=== PATIENT | male | born 1980 | race Two or more races ===

== ENCOUNTER 2023-03-20 16:38 | Inpatient (IN) | payer MEDICAID ==
[~2023-03-20] VITALS: Ht 177.8 cm; Wt 47.2 kg
[2023-03-20] MEDS ORDERED: PANT40SU2 GT (17:53)
[2023-03-20] MEDS ORDERED: ARGI1POW13 GT (17:53)
[2023-03-20] MEDS ORDERED: BISA10SU11 RC (17:53)
[2023-03-20] MEDS ORDERED: MULT9LIQ GT (17:53)
[2023-03-20] MEDS ORDERED: ASCO500L2 GT (17:53)
[2023-03-20] MEDS ORDERED: CRAN425C6 GT (17:53)
[2023-03-20] MEDS ORDERED: ENOX40DI9 SQ (17:53)
[2023-03-20] MEDS ORDERED: LACT100027 GT (17:53)
[2023-03-20] MEDS ORDERED: ACET-2070 GT (17:53)
[2023-03-20] MEDS ORDERED: ACET-2605 GT (17:53)
[2023-03-20] MEDS ORDERED: ZINC50TA65 GT (17:53)
[2023-03-20] MEDS ORDERED: BUSP15TA3 GT (17:53)
[2023-03-20] MEDS ORDERED: IBUP-1955 GT (17:53)
[2023-03-20] MEDS ORDERED: ALBU8.5H8 IH (17:53)
[2023-03-20] MEDS ORDERED: METO25TA6 GT (17:53)
[2023-03-20] MEDS ORDERED: DOCU100T2 GT (17:53)
[2023-03-20] MEDS ORDERED: ACET-868 GT (17:53)
[2023-03-20] MEDS ORDERED: LEVO750T46 GT (17:53)
[2023-03-20] MEDS ORDERED: CLON0.1T PO (17:53)
[2023-03-20] MEDS ORDERED: GABA250S GT (17:53)
[2023-03-20] MEDS ORDERED: FLUC200T GT (17:53)
[2023-03-20] MEDS ORDERED: FERR220E2 GT (17:53)
[2023-03-20] MEDS ORDERED: CHLO473M5 MM (17:53)
[2023-03-20] MEDS ORDERED: MAGN400O6 GT (17:53)
[2023-03-20 19:58] LABS: BASOPHILS % (AUTO) 0.4 % (0.0-2.0); EOSINOPHILS # (AUTO) 0.2 K/uL (0.0-0.7); EOSINOPHILS % (AUTO) 2.2 % (0.0-6.0); HEMATOCRIT 37 % (39-51); HEMOGLOBIN 11.3 g/dL (13.5-17.5); LYMPHOCYTES # (AUTO) 1.4 K/uL (0.8-4.8); LYMPHOCYTES % (AUTO) 13.6 % (20.0-44.0); MEAN CORPUSCULAR HEMOGLOBIN 24 PG (26.0-33.0); MEAN CORPUSCULAR HGB CONC 31 g/dl (31.0-36.0); MEAN CORPUSCULAR VOLUME 78 fL (80-96); MONOCYTES # (AUTO) 0.5 K/uL (0.1-1.30); MONOCYTES % (AUTO) 4.9 % (2.0-12.0); NEUTROPHILS # (AUTO) 8.1 K/uL (1.8-8.9); NEUTROPHILS % (AUTO) 78.9 % (43.0-81.0); PLATELET COUNT (AUTO) 543 K/uL (150-450); RED BLOOD CELL COUNT(AUTO) 4.66 MIL/uL (4.5-6.0); RED CELL DISTRIBUTION WIDTH 16.7 % (11.5-15.0); WHITE BLOOD COUNT (AUTO) 10.2 K/uL (4.3-11.0)
[2023-03-20 20:10] LABS: CALCIUM, SERUM 9.5 mg/dL (8.5-10.1); CREATININE 0.4 mg/dL (0.6-1.3); POTASSIUM 4.5 mmol/L (3.5-5.1)
[2023-03-20 20:50] VITALS: BP 114/76; TEMP 97.9; O2SAT 100
[2023-03-20] MEDS ORDERED: BISACODYL SUPP (10 MG) 10 MG/SUPP.RECT SUPP.RECT RC PRN (23:00)
[2023-03-20] MEDS ORDERED: ONDANSETRON HCL/PF 4 MG/2 ML VIAL IVP PRN (23:00)
[2023-03-20] MEDS ORDERED: ACETAMINOPHEN 325 MG TABLET PO PRN (23:00)
[2023-03-20] MEDS ORDERED: MAGNESIUM HYDROXIDE 30 ML UDC PO PRN (23:00)
[2023-03-20] MEDS ORDERED: MAG HYDROX/AL HYDROX/SIMETH 30 ML UDC PO PRN (23:00)
[2023-03-20] MEDS ORDERED: CLONIDINE HCL 0.1 MG TABLET PO PRN (23:00)
[2023-03-20] MEDS ORDERED: Z GUARD REMEDY 4 OZ OINT TP PRN (23:00)
[2023-03-20] MEDS ORDERED: IBUPROFEN 600 MG TABLET GT PRN (23:00)
[2023-03-20] MEDS ORDERED: ZOLPIDEM TARTRATE 5 MG TABLET PO PRN (23:00)
[2023-03-20] MEDS ORDERED: MAGNESIUM HYDROXIDE 30 ML UDC GT PRN (23:00)
[2023-03-20] MEDS: ENOXAPARIN SODIUM 40 MG/0.4 ML DISP.SYRIN SQ SCH (23:12)
[2023-03-20] MEDS ORDERED: VANCOMYCIN 1 GM /D5W 250 ML PB IV ONE (23:23)
[2023-03-20] MEDS ORDERED: VANCOMYCIN 1 GM in IV D5W 250ml IV ONE (23:30)
[2023-03-21] VITALS: BP 107/72; TEMP 99.1; O2SAT 98
[2023-03-21 04:00] VITALS: BP 105/70; TEMP 98.3; O2SAT 100
[2023-03-21 06:56] LABS: BASOPHILS # (AUTO) 0.1 K/uL (0.0-0.2); BASOPHILS % (AUTO) 0.8 % (0.0-2.0); EOSINOPHILS # (AUTO) 0.3 K/uL (0.0-0.7); EOSINOPHILS % (AUTO) 2.6 % (0.0-6.0); HEMATOCRIT 32 % (39-51); HEMOGLOBIN 10.3 g/dL (13.5-17.5); LYMPHOCYTES # (AUTO) 1.5 K/uL (0.8-4.8); MEAN CORPUSCULAR HEMOGLOBIN 25 PG (26.0-33.0); MEAN CORPUSCULAR HGB CONC 32 g/dl (31.0-36.0); MEAN CORPUSCULAR VOLUME 78 fL (80-96); MONOCYTES # (AUTO) 0.7 K/uL (0.1-1.30); MONOCYTES % (AUTO) 6.9 % (2.0-12.0); NEUTROPHILS # (AUTO) 7.7 K/uL (1.8-8.9); NEUTROPHILS % (AUTO) 74.7 % (43.0-81.0); PLATELET COUNT (AUTO) 552 K/uL (150-450); RED CELL DISTRIBUTION WIDTH 16.5 % (11.5-15.0); WHITE BLOOD COUNT (AUTO) 10.3 K/uL (4.3-11.0)
[2023-03-21 07:12] LABS: CALCIUM, SERUM 9.9 mg/dL (8.5-10.1); CREATININE 0.4 mg/dL (0.6-1.3); MAGNESIUM 2.1 mg/dL (1.8-2.4); PHOSPHORUS 4.2 mg/dL (2.5-4.9); POTASSIUM 4.1 mmol/L (3.5-5.1)
[2023-03-21 08:00] VITALS: BP 107/77; TEMP 98.7; O2SAT 99
[2023-03-21] MEDS: DOCUSATE SODIUM LIQ 100 MG/10 ML UDC GT SCH (08:52)
[2023-03-21] MEDS: CHLORHEXIDINE GLUCONATE 15 ML UDC MM SCH ×2 (08:52→21:54)
[2023-03-21] MEDS: MULTIVITAMINS,THERAGRAN 1 UDTAB TABLET GT SCH (08:53)
[2023-03-21] MEDS: METOPROLOL TARTRATE 25 MG TABLET GT SCH ×2 (08:54→21:54)
[2023-03-21] MEDS: busPIRone 5 MG TABLET GT SCH ×3 (08:55→16:56)
[2023-03-21] MEDS: ASCORBIC ACID 500 MG TABLET GT SCH ×2 (08:55→16:56)
[2023-03-21] MEDS ORDERED: PANTOPRAZOLE 40 MG VIAL IV SCH (09:00)
[2023-03-21] MEDS ORDERED: ENOXAPARIN SODIUM 40 MG/0.4 ML DISP.SYRIN SQ SCH (09:00)
[2023-03-21] MEDS: VANCOMYCIN 1 GM in IV D5W 250ml IV SCH ×2 (09:02→16:55)
[2023-03-21] MEDS: GABAPENTIN 300 MG CAPSULE PO SCH ×3 (09:07→16:56)
[2023-03-21 12:00] VITALS: BP 92/65; TEMP 98.3; O2SAT 98
[2023-03-21] MEDS ORDERED: JEVITY 1.2 CAL 1,000 ML BOTTLE GT PRN ×2 (13:00)
[2023-03-21 16:00] VITALS: BP 93/60; TEMP 98.3; O2SAT 99
[2023-03-21] MEDS: ZINC SULFATE 220 MG CAPSULE GT SCH (17:19)
[2023-03-21] MEDS: FERROUS SULFATE UDC 300 MG/5 ML UDC GT SCH (17:19)
[2023-03-21] MEDS ORDERED: CRANBERRY EXT/C/L. SPOROGENES 405 MG/TAB TABLET GT SCH (18:00)
[2023-03-21 20:00] VITALS: BP 120/70; TEMP 98.2; O2SAT 98
[2023-03-21] MEDS: ENOXAPARIN SODIUM 40 MG/0.4 ML DISP.SYRIN SQ SCH (21:56)
[2023-03-22] VITALS: BP 126/72; TEMP 98.6; O2SAT 98
[2023-03-22] MEDS: VANCOMYCIN 1 GM in IV D5W 250ml IV SCH ×2 (01:43→12:21)
[2023-03-22 04:00] VITALS: BP 122/70; TEMP 98; O2SAT 99
[2023-03-22 06:41] LABS: CALCIUM, SERUM 9.3 mg/dL (8.5-10.1); CREATININE 0.4 mg/dL (0.6-1.3); POTASSIUM 3.6 mmol/L (3.5-5.1)
[2023-03-22] MEDS ORDERED: ZOLPIDEM TARTRATE 5 MG TABLET GT PRN (07:00)
[2023-03-22] MEDS ORDERED: CLONIDINE HCL 0.1 MG TABLET GT PRN (07:00)
[2023-03-22] MEDS ORDERED: MAG HYDROX/AL HYDROX/SIMETH 30 ML UDC GT PRN (07:00)
[2023-03-22 08:00] VITALS: BP 105/65; TEMP 98.9; O2SAT 98
[2023-03-22] MEDS: CHLORHEXIDINE GLUCONATE 15 ML UDC MM SCH ×2 (08:52→21:40)
[2023-03-22] MEDS: DOCUSATE SODIUM LIQ 100 MG/10 ML UDC GT SCH (08:52)
[2023-03-22] MEDS: PANTOPRAZOLE 40 MG/PACK PACK GT SCH (08:52)
[2023-03-22] MEDS: ASCORBIC ACID 500 MG TABLET GT SCH ×2 (08:53→17:05)
[2023-03-22] MEDS: GABAPENTIN 300 MG CAPSULE GT SCH ×3 (08:53→17:04)
[2023-03-22] MEDS: METOPROLOL TARTRATE 25 MG TABLET GT SCH ×2 (08:53→21:00)
[2023-03-22] MEDS: busPIRone 5 MG TABLET GT SCH ×3 (08:53→17:04)
[2023-03-22] MEDS: MULTIVITAMINS,THERAGRAN 1 UDTAB TABLET GT SCH (08:54)
[2023-03-22] MEDS: DAKINS QUARTER STRENGTH (0.125%) 480 ML BOTTLE TOP SCH ×2 (10:48→22:00)
[2023-03-22 12:00] VITALS: BP 107/68; TEMP 99; O2SAT 100
[2023-03-22] MEDS: JEVITY 1.2 CAL 1,000 ML BOTTLE GT PRN (12:33)
[2023-03-22 16:00] VITALS: BP 110/80; TEMP 99.2; O2SAT 100
[2023-03-22] MEDS: FERROUS SULFATE UDC 300 MG/5 ML UDC GT SCH (17:04)
[2023-03-22] MEDS: ZINC SULFATE 220 MG CAPSULE GT SCH (17:05)
[2023-03-22 20:00] VITALS: BP 92/61; TEMP 99; O2SAT 100
[2023-03-22] MEDS: ENOXAPARIN SODIUM 40 MG/0.4 ML DISP.SYRIN SQ SCH (21:41)
[2023-03-22] MEDS: THERAHONEY GEL 1.5 OZ TUBE TP SCH (22:00)
[2023-03-22] MEDS ORDERED: SILVER NITRATE APPLICATOR 1 EA BOX TP SCH (22:00)
[2023-03-22] MEDS ORDERED: LIDOCAINE 1%-EPI 1:100,000 50 ML VIAL IJ ONE (22:00)
[2023-03-23] VITALS: BP 90/62; TEMP 99; O2SAT 98
[2023-03-23] MEDS: METOPROLOL TARTRATE 25 MG TABLET GT SCH ×3 (00:20→21:46)
[2023-03-23] MEDS: VANCOMYCIN 1 GM in IV D5W 250ml IV SCH ×2 (01:21→13:18)
[2023-03-23 04:00] VITALS: BP 94/63; TEMP 98.4; O2SAT 100
[2023-03-23] MEDS: JEVITY 1.2 CAL 1,000 ML BOTTLE GT PRN ×2 (06:06→22:05)
[2023-03-23 06:10] LABS: CALCIUM, SERUM 9.1 mg/dL (8.5-10.1); CREATININE 0.6 mg/dL (0.6-1.3)
[2023-03-23 08:00] VITALS: BP 98/60; TEMP 98.5; O2SAT 100
[2023-03-23] MEDS: DAKINS QUARTER STRENGTH (0.125%) 480 ML BOTTLE TOP SCH ×2 (09:00→09:38)
[2023-03-23] MEDS: CHLORHEXIDINE GLUCONATE 15 ML UDC MM SCH ×2 (09:22→21:42)
[2023-03-23] MEDS: PANTOPRAZOLE 40 MG/PACK PACK GT SCH (09:22)
[2023-03-23] MEDS: ASCORBIC ACID 500 MG TABLET GT SCH ×2 (09:22→17:34)
[2023-03-23] MEDS: DOCUSATE SODIUM LIQ 100 MG/10 ML UDC GT SCH (09:22)
[2023-03-23] MEDS: MULTIVITAMINS,THERAGRAN 1 UDTAB TABLET GT SCH (09:23)
[2023-03-23] MEDS: busPIRone 5 MG TABLET GT SCH ×3 (09:23→17:34)
[2023-03-23] MEDS: GABAPENTIN 300 MG CAPSULE GT SCH ×3 (09:23→17:34)
[2023-03-23] MEDS: THERAHONEY GEL 1.5 OZ TUBE TP SCH (09:38)
[2023-03-23 12:00] VITALS: BP 91/54; TEMP 98.6; O2SAT 100
[2023-03-23 16:00] VITALS: BP 90/70; TEMP 98.2; O2SAT 100
[2023-03-23] MEDS: ZINC SULFATE 220 MG CAPSULE GT SCH (17:34)
[2023-03-23] MEDS: FERROUS SULFATE UDC 300 MG/5 ML UDC GT SCH (17:34)
[2023-03-23 20:00] VITALS: BP 94/64; TEMP 98.3; O2SAT 100
[2023-03-23] MEDS: ENOXAPARIN SODIUM 40 MG/0.4 ML DISP.SYRIN SQ SCH (21:43)
[2023-03-24] VITALS: BP 96/65; TEMP 99; O2SAT 100
[2023-03-24] MEDS: VANCOMYCIN 1 GM in IV D5W 250ml IV SCH (00:31)
[2023-03-24 04:00] VITALS: BP 92/65; TEMP 98.1; O2SAT 100
[2023-03-24 05:51] LABS: CALCIUM, SERUM 9.7 mg/dL (8.5-10.1); CREATININE 0.4 mg/dL (0.6-1.3); POTASSIUM 3.9 mmol/L (3.5-5.1)
[2023-03-24 08:00] VITALS: BP 100/66; TEMP 98.9; O2SAT 100
[2023-03-24] MEDS: DAKINS QUARTER STRENGTH (0.125%) 480 ML BOTTLE TOP SCH ×2 (09:00→09:55)
[2023-03-24] MEDS: GABAPENTIN 300 MG CAPSULE GT SCH ×3 (09:43→17:49)
[2023-03-24] MEDS: PANTOPRAZOLE 40 MG/PACK PACK GT SCH (09:43)
[2023-03-24] MEDS: busPIRone 5 MG TABLET GT SCH ×3 (09:43→17:49)
[2023-03-24] MEDS: CHLORHEXIDINE GLUCONATE 15 ML UDC MM SCH ×2 (09:43→21:47)
[2023-03-24] MEDS: MULTIVITAMINS,THERAGRAN 1 UDTAB TABLET GT SCH (09:43)
[2023-03-24] MEDS: ASCORBIC ACID 500 MG TABLET GT SCH ×2 (09:43→17:49)
[2023-03-24] MEDS: DOCUSATE SODIUM LIQ 100 MG/10 ML UDC GT SCH (09:43)
[2023-03-24] MEDS: METOPROLOL TARTRATE 25 MG TABLET GT SCH ×2 (09:44→21:48)
[2023-03-24] MEDS: THERAHONEY GEL 1.5 OZ TUBE TP SCH (09:57)
[2023-03-24 12:00] VITALS: BP 100/49; TEMP 98.8; O2SAT 100
[2023-03-24] MEDS ORDERED: CEFEPIME 1 GM in IV D5W 50 ML IV SCH (12:30)
[2023-03-24] MEDS: CEFEPIME 2 GM in IV D5W 100 ML IV SCH (13:40)
[2023-03-24 16:00] VITALS: BP 102/53; TEMP 98.9; O2SAT 100
[2023-03-24] MEDS: FERROUS SULFATE UDC 300 MG/5 ML UDC GT SCH (17:49)
[2023-03-24] MEDS: ZINC SULFATE 220 MG CAPSULE GT SCH (17:49)
[2023-03-24] MEDS: PROSOURCE / PROSTAT (PYXIS) 30 ML UDC GT SCH (17:56)
[2023-03-24] MEDS: JEVITY 1.2 CAL 1,000 ML BOTTLE GT PRN (18:50)
[2023-03-24 20:00] VITALS: BP 100/64; TEMP 99.1; O2SAT 100
[2023-03-24] MEDS: ENOXAPARIN SODIUM 40 MG/0.4 ML DISP.SYRIN SQ SCH (21:47)
[2023-03-25] VITALS: BP 104/68; TEMP 98.4; O2SAT 99
[2023-03-25] MEDS: CEFEPIME 2 GM in IV D5W 100 ML IV SCH ×2 (01:12→13:12)
[2023-03-25 04:00] VITALS: BP 103/71; TEMP 98.9; O2SAT 100
[2023-03-25 06:25] LABS: CALCIUM, SERUM 9.6 mg/dL (8.5-10.1); CREATININE 0.5 mg/dL (0.6-1.3)
[2023-03-25 08:00] VITALS: BP 97/62; TEMP 98.5; O2SAT 100
[2023-03-25] MEDS: PROSOURCE / PROSTAT (PYXIS) 30 ML UDC GT SCH ×2 (08:47→17:53)
[2023-03-25 08:54] LABS: BASOPHILS # (AUTO) 0.1 K/uL (0.0-0.2); BASOPHILS % (AUTO) 0.6 % (0.0-2.0); EOSINOPHILS # (AUTO) 0.3 K/uL (0.0-0.7); EOSINOPHILS % (AUTO) 2.3 % (0.0-6.0); HEMATOCRIT 30 % (39-51); HEMOGLOBIN 9.5 g/dL (13.5-17.5); LYMPHOCYTES # (AUTO) 0.9 K/uL (0.8-4.8); LYMPHOCYTES % (AUTO) 7.2 % (20.0-44.0); MEAN CORPUSCULAR HEMOGLOBIN 24 PG (26.0-33.0); MEAN CORPUSCULAR HGB CONC 31 g/dl (31.0-36.0); MEAN CORPUSCULAR VOLUME 78 fL (80-96); MONOCYTES # (AUTO) 0.8 K/uL (0.1-1.30); MONOCYTES % (AUTO) 6.7 % (2.0-12.0); NEUTROPHILS # (AUTO) 10.1 K/uL (1.8-8.9); NEUTROPHILS % (AUTO) 83.2 % (43.0-81.0); PLATELET COUNT (AUTO) 420 K/uL (150-450); RED BLOOD CELL COUNT(AUTO) 3.89 MIL/uL (4.5-6.0); RED CELL DISTRIBUTION WIDTH 17.1 % (11.5-15.0); WHITE BLOOD COUNT (AUTO) 12.2 K/uL (4.3-11.0)
[2023-03-25] MEDS: DAKINS QUARTER STRENGTH (0.125%) 480 ML BOTTLE TOP SCH ×2 (09:00→09:16)
[2023-03-25] MEDS: CHLORHEXIDINE GLUCONATE 15 ML UDC MM SCH ×2 (09:14→21:18)
[2023-03-25] MEDS: MULTIVITAMINS,THERAGRAN 1 UDTAB TABLET GT SCH (09:14)
[2023-03-25] MEDS: DOCUSATE SODIUM LIQ 100 MG/10 ML UDC GT SCH (09:14)
[2023-03-25] MEDS: PANTOPRAZOLE 40 MG/PACK PACK GT SCH (09:14)
[2023-03-25] MEDS: ASCORBIC ACID 500 MG TABLET GT SCH ×2 (09:15→17:53)
[2023-03-25] MEDS: METOPROLOL TARTRATE 25 MG TABLET GT SCH ×2 (09:15→21:18)
[2023-03-25] MEDS: GABAPENTIN 300 MG CAPSULE GT SCH ×3 (09:16→17:53)
[2023-03-25] MEDS: busPIRone 5 MG TABLET GT SCH ×3 (09:16→17:53)
[2023-03-25] MEDS: THERAHONEY GEL 1.5 OZ TUBE TP SCH (09:17)
[2023-03-25] MEDS: JEVITY 1.2 CAL 1,000 ML BOTTLE GT PRN (11:35)
[2023-03-25 12:00] VITALS: BP 99/65; TEMP 98.4; O2SAT 100
[2023-03-25 16:00] VITALS: BP 97/61; TEMP 98.8; O2SAT 91
[2023-03-25] MEDS: FERROUS SULFATE UDC 300 MG/5 ML UDC GT SCH (17:52)
[2023-03-25] MEDS: ZINC SULFATE 220 MG CAPSULE GT SCH (17:53)
[2023-03-25 20:00] VITALS: BP 107/72; TEMP 99.1; O2SAT 98
[2023-03-25] MEDS: ACETAMINOPHEN 650 MG/20.3 ML UDC GT PRN (21:22)
[2023-03-25] MEDS: ENOXAPARIN SODIUM 40 MG/0.4 ML DISP.SYRIN SQ SCH (22:07)
[2023-03-26] VITALS: BP 97/68; TEMP 98.6; O2SAT 99
[2023-03-26] MEDS: CEFEPIME 2 GM in IV D5W 100 ML IV SCH ×2 (01:22→13:04)
[2023-03-26 04:00] VITALS: BP 97/65; TEMP 98.5; O2SAT 100
[2023-03-26] MEDS: JEVITY 1.2 CAL 1,000 ML BOTTLE GT PRN ×2 (05:45→18:20)
[2023-03-26 06:57] LABS: CALCIUM, SERUM 9.6 mg/dL (8.5-10.1); CREATININE 0.4 mg/dL (0.6-1.3); POTASSIUM 4.1 mmol/L (3.5-5.1)
[2023-03-26 07:52] LABS: C-REACTIVE PROTEIN 3.7 mg/dL (0.0-0.9)
[2023-03-26 08:00] VITALS: BP 96/69; TEMP 98.9; O2SAT 100
[2023-03-26] MEDS: PROSOURCE / PROSTAT (PYXIS) 30 ML UDC GT SCH ×2 (09:17→17:20)
[2023-03-26] MEDS: CHLORHEXIDINE GLUCONATE 15 ML UDC MM SCH ×2 (09:17→20:49)
[2023-03-26] MEDS: PANTOPRAZOLE 40 MG/PACK PACK GT SCH (09:18)
[2023-03-26] MEDS: DOCUSATE SODIUM LIQ 100 MG/10 ML UDC GT SCH (09:18)
[2023-03-26] MEDS: ASCORBIC ACID 500 MG TABLET GT SCH ×2 (09:18→17:20)
[2023-03-26] MEDS: METOPROLOL TARTRATE 25 MG TABLET GT SCH ×2 (09:18→20:49)
[2023-03-26] MEDS: busPIRone 5 MG TABLET GT SCH ×3 (09:18→17:20)
[2023-03-26] MEDS: GABAPENTIN 300 MG CAPSULE GT SCH ×3 (09:18→17:20)
[2023-03-26] MEDS: MULTIVITAMINS,THERAGRAN 1 UDTAB TABLET GT SCH (09:18)
[2023-03-26] MEDS: DAKINS QUARTER STRENGTH (0.125%) 480 ML BOTTLE TOP SCH ×2 (09:19)
[2023-03-26] MEDS: THERAHONEY GEL 1.5 OZ TUBE TP SCH (09:19)
[2023-03-26 12:00] VITALS: BP 90/62; TEMP 99; O2SAT 100
[2023-03-26] MEDS ORDERED: HYDROCODONE/APAP 5/325MG TABLET GT PRN (12:00)
[2023-03-26 16:00] VITALS: BP 108/77; TEMP 99.1; O2SAT 100
[2023-03-26] MEDS: FERROUS SULFATE UDC 300 MG/5 ML UDC GT SCH (17:20)
[2023-03-26] MEDS: ZINC SULFATE 220 MG CAPSULE GT SCH (17:20)
[2023-03-26] MEDS ORDERED: VANCOMYCIN 1 GM in IV D5W 250ml IV ONE (18:00)
[2023-03-26] MEDS ORDERED: ALBUMIN 25% 25 GM in PREMIX 1 EA IV SCH (19:30)
[2023-03-26 20:00] VITALS: BP 109/76; TEMP 99.1; O2SAT 100
[2023-03-26] MEDS: ACETAMINOPHEN 650 MG/20.3 ML UDC GT PRN (20:49)
[2023-03-26] MEDS: ENOXAPARIN SODIUM 40 MG/0.4 ML DISP.SYRIN SQ SCH (21:22)
[2023-03-27] VITALS: BP 99/69; TEMP 99.7; O2SAT 100
[2023-03-27] MEDS: CEFEPIME 2 GM in IV D5W 100 ML IV SCH ×2 (01:15→12:18)
[2023-03-27 04:00] VITALS: BP 103/73; TEMP 98.9; O2SAT 100
[2023-03-27] MEDS: VANCOMYCIN HCL 0.75 GM in IV D5W 250 ML IV SCH ×2 (05:00→17:21)
[2023-03-27 05:29] LABS: CALCIUM, SERUM 9.5 mg/dL (8.5-10.1); CREATININE 0.4 mg/dL (0.6-1.3); POTASSIUM 3.9 mmol/L (3.5-5.1)
[2023-03-27 08:00] VITALS: BP 102/59; TEMP 98.7; O2SAT 100
[2023-03-27] MEDS: PROSOURCE / PROSTAT (PYXIS) 30 ML UDC GT SCH ×2 (08:22→16:36)
[2023-03-27] MEDS: DOCUSATE SODIUM LIQ 100 MG/10 ML UDC GT SCH (08:43)
[2023-03-27] MEDS: MULTIVITAMINS,THERAGRAN 1 UDTAB TABLET GT SCH (08:44)
[2023-03-27] MEDS: ASCORBIC ACID 500 MG TABLET GT SCH ×2 (08:44→16:46)
[2023-03-27] MEDS: GABAPENTIN 300 MG CAPSULE GT SCH ×3 (08:44→16:46)
[2023-03-27] MEDS: PANTOPRAZOLE 40 MG/PACK PACK GT SCH (08:44)
[2023-03-27] MEDS: METOPROLOL TARTRATE 25 MG TABLET GT SCH ×2 (08:47→21:10)
[2023-03-27] MEDS: busPIRone 5 MG TABLET GT SCH ×3 (08:47→16:46)
[2023-03-27] MEDS: DAKINS QUARTER STRENGTH (0.125%) 480 ML BOTTLE TOP SCH (08:48)
[2023-03-27] MEDS: THERAHONEY GEL 1.5 OZ TUBE TP SCH (08:48)
[2023-03-27] MEDS: CHLORHEXIDINE GLUCONATE 15 ML UDC MM SCH ×2 (08:50→21:03)
[2023-03-27 11:03] LABS: BASOPHILS # (AUTO) 0.1 K/uL (0.0-0.2); EOSINOPHILS # (AUTO) 0.4 K/uL (0.0-0.7); HEMOGLOBIN 9.2 g/dL (13.5-17.5); MONOCYTES % (AUTO) 9.4 % (2.0-12.0)
[2023-03-27 11:05] LABS: BASOPHILS % (AUTO) 0.9 % (0.0-2.0); EOSINOPHILS % (AUTO) 4.9 % (0.0-6.0); HEMATOCRIT 28 % (39-51); LYMPHOCYTES # (AUTO) 1.3 K/uL (0.8-4.8); LYMPHOCYTES % (AUTO) 14.5 % (20.0-44.0); MEAN CORPUSCULAR HEMOGLOBIN 25 PG (26.0-33.0); MEAN CORPUSCULAR HGB CONC 33 g/dl (31.0-36.0); MEAN CORPUSCULAR VOLUME 78 fL (80-96); MONOCYTES # (AUTO) 0.9 K/uL (0.1-1.30); NEUTROPHILS # (AUTO) 6.4 K/uL (1.8-8.9); NEUTROPHILS % (AUTO) 70.3 % (43.0-81.0); PLATELET COUNT (AUTO) 447 K/uL (150-450); RED BLOOD CELL COUNT(AUTO) 3.65 MIL/uL (4.5-6.0); RED CELL DISTRIBUTION WIDTH 16.9 % (11.5-15.0)
[2023-03-27 12:00] VITALS: BP 90/60; TEMP 98; O2SAT 100
[2023-03-27] MEDS: JEVITY 1.2 CAL 1,000 ML BOTTLE GT PRN (12:26)
[2023-03-27 16:00] VITALS: BP 99/50; TEMP 98.8; O2SAT 100
[2023-03-27] MEDS: FERROUS SULFATE UDC 300 MG/5 ML UDC GT SCH (17:04)
[2023-03-27] MEDS: ZINC SULFATE 220 MG CAPSULE GT SCH (17:04)
[2023-03-27 20:00] VITALS: BP 108/65; TEMP 98.1; O2SAT 100
[2023-03-27] MEDS: ENOXAPARIN SODIUM 40 MG/0.4 ML DISP.SYRIN SQ SCH (21:03)
[2023-03-28] VITALS: BP 95/65; TEMP 98; O2SAT 100
[2023-03-28] MEDS: CEFEPIME 2 GM in IV D5W 100 ML IV SCH ×2 (00:07→12:25)
[2023-03-28 04:00] VITALS: BP 100/71; TEMP 98.1; O2SAT 100
[2023-03-28] MEDS: JEVITY 1.2 CAL 1,000 ML BOTTLE GT PRN ×2 (04:31→22:07)
[2023-03-28 06:19] LABS: CALCIUM, SERUM 9.7 mg/dL (8.5-10.1); CREATININE 0.4 mg/dL (0.6-1.3); POTASSIUM 3.7 mmol/L (3.5-5.1)
[2023-03-28] MEDS: VANCOMYCIN HCL 0.75 GM in IV D5W 250 ML IV SCH (06:44)
[2023-03-28 08:00] VITALS: BP 109/70; TEMP 97.9; O2SAT 100
[2023-03-28] MEDS: PROSOURCE / PROSTAT (PYXIS) 30 ML UDC GT SCH ×2 (08:58→17:27)
[2023-03-28] MEDS: ASCORBIC ACID 500 MG TABLET GT SCH ×2 (09:12→17:26)
[2023-03-28] MEDS: GABAPENTIN 300 MG CAPSULE GT SCH ×3 (09:12→17:26)
[2023-03-28] MEDS: PANTOPRAZOLE 40 MG/PACK PACK GT SCH (09:12)
[2023-03-28] MEDS: MULTIVITAMINS,THERAGRAN 1 UDTAB TABLET GT SCH (09:12)
[2023-03-28] MEDS: DOCUSATE SODIUM LIQ 100 MG/10 ML UDC GT SCH (09:12)
[2023-03-28] MEDS: busPIRone 5 MG TABLET GT SCH ×3 (09:13→17:27)
[2023-03-28] MEDS: METOPROLOL TARTRATE 25 MG TABLET GT SCH ×2 (09:13→21:13)
[2023-03-28] MEDS: CHLORHEXIDINE GLUCONATE 15 ML UDC MM SCH ×2 (09:14→21:13)
[2023-03-28] MEDS: DAKINS QUARTER STRENGTH (0.125%) 480 ML BOTTLE TOP SCH (09:14)
[2023-03-28] MEDS: THERAHONEY GEL 1.5 OZ TUBE TP SCH (09:14)
[2023-03-28 12:00] VITALS: BP 95/60; TEMP 98; O2SAT 99
[2023-03-28 16:00] VITALS: BP 107/72; TEMP 98.2; O2SAT 100
[2023-03-28] MEDS: ZINC SULFATE 220 MG CAPSULE GT SCH (17:26)
[2023-03-28] MEDS: FERROUS SULFATE UDC 300 MG/5 ML UDC GT SCH (17:26)
[2023-03-28] MEDS: VANCOMYCIN 1 GM in IV D5W 250 ML IV SCH (17:30)
[2023-03-28 20:00] VITALS: BP 106/70; TEMP 98.5; O2SAT 99
[2023-03-28] MEDS: ENOXAPARIN SODIUM 40 MG/0.4 ML DISP.SYRIN SQ SCH (21:14)
[2023-03-29] VITALS: BP 100/69; TEMP 98.3; O2SAT 100
[2023-03-29] MEDS: CEFEPIME 2 GM in IV D5W 100 ML IV SCH ×2 (01:11→12:08)
[2023-03-29 04:00] VITALS: BP 101/67; TEMP 98.6; O2SAT 100
[2023-03-29] MEDS: VANCOMYCIN 1 GM in IV D5W 250 ML IV SCH ×2 (05:52→17:39)
[2023-03-29 06:43] LABS: CALCIUM, SERUM 9.4 mg/dL (8.5-10.1); CREATININE 0.4 mg/dL (0.6-1.3); POTASSIUM 3.8 mmol/L (3.5-5.1)
[2023-03-29] MEDS: PROSOURCE / PROSTAT (PYXIS) 30 ML UDC GT SCH ×2 (07:35→16:23)
[2023-03-29 08:00] VITALS: BP 98/67; TEMP 98.1; O2SAT 100
[2023-03-29] MEDS: METOPROLOL TARTRATE 25 MG TABLET GT SCH ×2 (08:20→21:15)
[2023-03-29] MEDS: DAKINS QUARTER STRENGTH (0.125%) 480 ML BOTTLE TOP SCH (08:21)
[2023-03-29] MEDS: MULTIVITAMINS,THERAGRAN 1 UDTAB TABLET GT SCH (08:21)
[2023-03-29] MEDS: CHLORHEXIDINE GLUCONATE 15 ML UDC MM SCH ×2 (08:21→21:11)
[2023-03-29] MEDS: busPIRone 5 MG TABLET GT SCH ×3 (08:21→16:24)
[2023-03-29] MEDS: PANTOPRAZOLE 40 MG/PACK PACK GT SCH (08:21)
[2023-03-29] MEDS: ASCORBIC ACID 500 MG TABLET GT SCH ×2 (08:21→16:23)
[2023-03-29] MEDS: DOCUSATE SODIUM LIQ 100 MG/10 ML UDC GT SCH (08:21)
[2023-03-29] MEDS: GABAPENTIN 300 MG CAPSULE GT SCH ×3 (08:21→16:23)
[2023-03-29] MEDS: THERAHONEY GEL 1.5 OZ TUBE TP SCH (08:21)
[2023-03-29] MEDS ORDERED: LIDOCAINE 1%-EPI 1:100,000 20 ML VIAL TP ONE (09:00)
[2023-03-29] MEDS ORDERED: SILVER NITRATE APPLICATOR 1 EA BOX TP ONE (09:00)
[2023-03-29 12:00] VITALS: BP 98/65; TEMP 98.1; O2SAT 100
[2023-03-29] MEDS: METRONIDAZOLE 500MG/ NS 100ML 500 MG in PREMIX 1 EA IV SCH ×2 (13:53→21:11)
[2023-03-29] MEDS: JEVITY 1.2 CAL 1,000 ML BOTTLE GT PRN (13:59)
[2023-03-29 16:00] VITALS: BP 99/64; TEMP 97.8; O2SAT 100
[2023-03-29] MEDS: FERROUS SULFATE UDC 300 MG/5 ML UDC GT SCH (17:39)
[2023-03-29] MEDS: ZINC SULFATE 220 MG CAPSULE GT SCH (17:39)
[2023-03-29 20:00] VITALS: BP 110/67; TEMP 99.9; O2SAT 98
[2023-03-29] MEDS: ACETAMINOPHEN 650 MG/20.3 ML UDC GT PRN (21:12)
[2023-03-29] MEDS: ENOXAPARIN SODIUM 40 MG/0.4 ML DISP.SYRIN SQ SCH (21:14)
[2023-03-30] VITALS (9 sets, daily range): BP systolic 95–109; BP diastolic 45–80; TEMP 97.9–100.3; O2SAT 77–100
[2023-03-30] MEDS: CEFEPIME 2 GM in IV D5W 100 ML IV SCH (00:34)
[2023-03-30] MEDS: METRONIDAZOLE 500MG/ NS 100ML 500 MG in PREMIX 1 EA IV SCH (04:00)
[2023-03-30] MEDS: VANCOMYCIN 1 GM in IV D5W 250 ML IV SCH (05:13)
[2023-03-30] MEDS: JEVITY 1.2 CAL 1,000 ML BOTTLE GT PRN (05:18)
[2023-03-30 06:02] LABS: CALCIUM, SERUM 9.4 mg/dL (8.5-10.1); CREATININE 0.4 mg/dL (0.6-1.3); POTASSIUM 3.7 mmol/L (3.5-5.1)
[2023-03-30] MEDS: busPIRone 5 MG TABLET GT SCH ×3 (08:26→16:04)
[2023-03-30] MEDS: CHLORHEXIDINE GLUCONATE 15 ML UDC MM SCH ×2 (08:26→20:36)
[2023-03-30] MEDS: GABAPENTIN 300 MG CAPSULE GT SCH ×3 (08:26→16:04)
[2023-03-30] MEDS: DOCUSATE SODIUM LIQ 100 MG/10 ML UDC GT SCH (08:26)
[2023-03-30] MEDS: PROSOURCE / PROSTAT (PYXIS) 30 ML UDC GT SCH ×2 (08:27→16:04)
[2023-03-30] MEDS: ASCORBIC ACID 500 MG TABLET GT SCH ×2 (08:27→16:04)
[2023-03-30] MEDS: PANTOPRAZOLE 40 MG/PACK PACK GT SCH (08:27)
[2023-03-30] MEDS: MULTIVITAMINS,THERAGRAN 1 UDTAB TABLET GT SCH (08:27)
[2023-03-30] MEDS: DAKINS QUARTER STRENGTH (0.125%) 480 ML BOTTLE TOP SCH (08:29)
[2023-03-30] MEDS: THERAHONEY GEL 1.5 OZ TUBE TP SCH (08:30)
[2023-03-30] MEDS: METOPROLOL TARTRATE 25 MG TABLET GT SCH ×2 (09:59→20:41)
[2023-03-30] MEDS: ACETAMINOPHEN 650 MG/20.3 ML UDC GT PRN (10:20)
[2023-03-30 10:41] LABS: ABG BASE EXCESS 1.5 mmol/L; ABG OXYGEN SATURATION 99.5 % (92.0-98.5); ABG PCO2 37.2 mmHg (35.0-45.0); ABG PH 7.452 (7.350-7.450); ABG PO2 244.9 mmHg (75.0-100.0); ABG TOTAL HEMOGLOBIN 10.3 G/dL (13.5-18.0); AaDO2 430.9 mmHg; COHb 0.3 % (0.5-1.5); MetHb 0.2 % (0.0-1.5); SITE, ABG Right Radial
[2023-03-30] MEDS: CEFTRIAXONE 2 G in IV D5W 100 ML IV SCH (10:53)
[2023-03-30] MEDS: METRONIDAZOLE 500 MG TABLET PO SCH ×3 (11:22→20:36)
[2023-03-30 11:58] LABS: CALCIUM, SERUM 8.9 mg/dL (8.5-10.1); CREATININE 0.4 mg/dL (0.6-1.3); POTASSIUM 3.7 mmol/L (3.5-5.1)
[2023-03-30 12:02] LABS: BASOPHILS # (AUTO) 0.1 K/uL (0.0-0.2); BASOPHILS % (AUTO) 0.6 % (0.0-2.0); EOSINOPHILS # (AUTO) 0.4 K/uL (0.0-0.7); EOSINOPHILS % (AUTO) 3.1 % (0.0-6.0); HEMATOCRIT 29 % (39-51); HEMOGLOBIN 9.1 g/dL (13.5-17.5); LYMPHOCYTES % (AUTO) 7.6 % (20.0-44.0); MEAN CORPUSCULAR HEMOGLOBIN 25 PG (26.0-33.0); MEAN CORPUSCULAR HGB CONC 32 g/dl (31.0-36.0); MEAN CORPUSCULAR VOLUME 79 fL (80-96); MONOCYTES # (AUTO) 0.9 K/uL (0.1-1.30); MONOCYTES % (AUTO) 6.8 % (2.0-12.0); NEUTROPHILS # (AUTO) 10.3 K/uL (1.8-8.9); NEUTROPHILS % (AUTO) 81.9 % (43.0-81.0); PLATELET COUNT (AUTO) 393 K/uL (150-450); RED BLOOD CELL COUNT(AUTO) 3.62 MIL/uL (4.5-6.0); RED CELL DISTRIBUTION WIDTH 16.7 % (11.5-15.0); WHITE BLOOD COUNT (AUTO) 12.6 K/uL (4.3-11.0)
[2023-03-30 12:09] LABS: LACTIC ACID 1.7 mmol/L (0.4-2.0)
[2023-03-30] MEDS ORDERED: VANCOMYCIN HCL 0.75 GM in IV D5W 250 ML IV SCH (14:00)
[2023-03-30] MEDS: FERROUS SULFATE UDC 300 MG/5 ML UDC GT SCH (17:48)
[2023-03-30] MEDS: ZINC SULFATE 220 MG CAPSULE GT SCH (17:49)
[2023-03-30] MEDS: ENOXAPARIN SODIUM 40 MG/0.4 ML DISP.SYRIN SQ SCH (22:15)
[2023-03-31] VITALS: BP 93/64; TEMP 99; O2SAT 100
[2023-03-31] MEDS: ACETAMINOPHEN 650 MG/20.3 ML UDC GT PRN ×2 (01:14→09:07)
[2023-03-31 04:00] VITALS: BP 100/64; TEMP 99; O2SAT 100
[2023-03-31] MEDS: METRONIDAZOLE 500 MG TABLET PO SCH ×2 (05:03→13:00)
[2023-03-31] MEDS: JEVITY 1.2 CAL 1,000 ML BOTTLE GT PRN (05:03)
[2023-03-31 06:06] LABS: CALCIUM, SERUM 9.6 mg/dL (8.5-10.1); CREATININE 0.4 mg/dL (0.6-1.3); POTASSIUM 3.8 mmol/L (3.5-5.1)
[2023-03-31 08:00] VITALS: BP 10/66; TEMP 99.5; O2SAT 100
[2023-03-31] MEDS: PROSOURCE / PROSTAT (PYXIS) 30 ML UDC GT SCH (08:26)
[2023-03-31] MEDS: PANTOPRAZOLE 40 MG/PACK PACK GT SCH (08:26)
[2023-03-31] MEDS: ASCORBIC ACID 500 MG TABLET GT SCH (09:07)
[2023-03-31] MEDS: MULTIVITAMINS,THERAGRAN 1 UDTAB TABLET GT SCH (09:07)
[2023-03-31] MEDS: CHLORHEXIDINE GLUCONATE 15 ML UDC MM SCH (09:07)
[2023-03-31] MEDS: busPIRone 5 MG TABLET GT SCH ×2 (09:07→13:00)
[2023-03-31] MEDS: GABAPENTIN 300 MG CAPSULE GT SCH ×2 (09:07→13:00)
[2023-03-31] MEDS: DOCUSATE SODIUM LIQ 100 MG/10 ML UDC GT SCH (09:07)
[2023-03-31] MEDS: METOPROLOL TARTRATE 25 MG TABLET GT SCH (09:08)
[2023-03-31] MEDS: THERAHONEY GEL 1.5 OZ TUBE TP SCH (09:10)
[2023-03-31] MEDS: DAKINS QUARTER STRENGTH (0.125%) 480 ML BOTTLE TOP SCH (09:31)
[2023-03-31] MEDS: CEFTRIAXONE 2 G in IV D5W 100 ML IV SCH (11:07)
[2023-03-31 12:00] VITALS: BP 96/68; TEMP 98.2; O2SAT 100
[2023-04-01 14:45] LABS: HIV-1 p24 ANTIGEN NON REACTIVE (NONREACTIVE); HIV-1/2 ANTIBODY NON REACTIVE (NONREACTIVE)
== END 2023-03-31 13:32 | DRG 364 ==
LOC: ER 17:03 → TELE1 20:29
PROVIDERS: ADMIT Nurse Practitioner Acute Care; ATTEND Internal Medicine
PROC: 5A1955Z Respiratory Ventilation, Greater than 96 Consecutive Hours (ICD-10-PCS; principal; 2023-03-20)
PROC: 0KBN0ZZ Excision of Right Hip Muscle, Open Approach (ICD-10-PCS; 2023-03-23)
PROC: 0KBP0ZZ Excision of Left Hip Muscle, Open Approach (ICD-10-PCS; 2023-03-23)
PROC: 05H533Z Insertion of Infusion Device into Right Subclavian Vein, Percutaneous Approach (ICD-10-PCS; 2023-03-25)
PROC: B546ZZA Ultrasonography of Right Subclavian Vein, Guidance (ICD-10-PCS; 2023-03-25)
PROC: 0KBP0ZZ Excision of Left Hip Muscle, Open Approach (ICD-10-PCS; 2023-03-29)
PROC: 0KBN0ZZ Excision of Right Hip Muscle, Open Approach (ICD-10-PCS; 2023-03-29)
PROC: 0KBP0ZZ Excision of Left Hip Muscle, Open Approach (ICD-10-PCS; 2023-03-29)
PROC: 0KBN0ZZ Excision of Right Hip Muscle, Open Approach (ICD-10-PCS; 2023-03-29)
DX: L89.154 Pressure ulcer of sacral region, stage 4 (principal); J96.20 Acute and chronic respiratory failure, unspecified whether with hypoxia or hypercapnia; G93.41 Metabolic encephalopathy; J15.9 Unspecified bacterial pneumonia; E43 Unspecified severe protein-calorie malnutrition; L89.214 Pressure ulcer of right hip, stage 4; L89.224 Pressure ulcer of left hip, stage 4; G93.1 Anoxic brain damage, not elsewhere classified; R64 Cachexia; L89.314 Pressure ulcer of right buttock, stage 4; L89.896 Pressure-induced deep tissue damage of other site; L89.893 Pressure ulcer of other site, stage 3; R53.2 Functional quadriplegia; Z93.0 Tracheostomy status; Z99.11 Dependence on respirator [ventilator] status; R13.10 Dysphagia, unspecified; D50.9 Iron deficiency anemia, unspecified; D72.829 Elevated white blood cell count, unspecified; I10 Essential (primary) hypertension; M24.561 Contracture, right knee; M24.562 Contracture, left knee; J96.21 Acute and chronic respiratory failure with hypoxia; E88.09 Other disorders of plasma-protein metabolism, not elsewhere classified; Z93.1 Gastrostomy status; Z68.1 Body mass index [BMI] 19.9 or less, adult; Z20.822 Contact with and (suspected) exposure to COVID-19; M24.522 Contracture, left elbow; M24.521 Contracture, right elbow; L89.44 Pressure ulcer of contiguous site of back, buttock and hip, stage 4; T17.990A Other foreign object in respiratory tract, part unspecified in causing asphyxiation, initial encounter
CPT/HCPCS: 31720; 36415; 36600; 71045-TC; 72190-TC; 72192-TC; 80048-TC; 80202-TC; 82962-TC; 83605-TC; 83735-TC; 84100-TC; 85025-TC; 85652-TC; 86140-TC; 86803; 87040-TC; 87081-TC; 87806; 94002-TC; 94003-TC; 94760-TC; 94762-TC; 94799-TC; 99082-TC; A4216; A4223; A4349; A4623; A6253; A6403; A7526; C9113; G0378; J0692; J0696; J1650; J3370; J3490; J7050; J7060